=== PATIENT | female | born 1950 | race Caucasian/White ===

== ENCOUNTER 2024-05-29 10:15 | Day surgery (SDC) | payer MEDICARE, OTHER ==
[~2024-05-29] VITALS: Ht 160 cm; Wt 102.2 kg
[2024-05-29] VITALS (17 sets, daily range): BP systolic 107–136; BP diastolic 45–68; PULSE 60–62; RESP 12–22; TEMP 98.2; O2SAT 92–100
[2024-05-29] MEDS ORDERED: OMEG-166 PO (10:59)
[2024-05-29] MEDS ORDERED: CHOL200080 PO (10:59)
[2024-05-29] MEDS ORDERED: POTA-207 PO (10:59)
[2024-05-29] MEDS ORDERED: SACU1TAB PO (10:59)
[2024-05-29] MEDS ORDERED: APIX5TAB3 PO (10:59)
[2024-05-29] MEDS ORDERED: VITA1CAP8 (10:59)
[2024-05-29] MEDS ORDERED: FURO40TA4 PO (10:59)
[2024-05-29] MEDS ORDERED: LACT1CAP65 PO (10:59)
[2024-05-29] MEDS ORDERED: VIT1CAPS9 PO (10:59)
[2024-05-29] MEDS ORDERED: SPIR25TA5 PO (10:59)
[2024-05-29] MEDS: fentaNYL/PF 50MCG/1 ML 2ML syringe IV ONE (12:41)
[2024-05-29] MEDS: normal saline 1000ml 1,000 ML IV SCH (12:41)
[2024-05-29] MEDS: MIDAZolam 1mg/ml 10ml vial IV ONE (12:41)
== END 2024-05-29 14:15 | disposition home or self-care (01) ==
LOC: SSTAY O 10:15
PROVIDERS: ATTEND Student in an Organized Health Care Education/Training Program
DX: I08.1 Rheumatic disorders of both mitral and tricuspid valves (principal); I25.10 Atherosclerotic heart disease of native coronary artery without angina pectoris; I11.0 Hypertensive heart disease with heart failure; I50.9 Heart failure, unspecified; I48.91 Unspecified atrial fibrillation; Z79.01 Long term (current) use of anticoagulants; Z79.899 Other long term (current) drug therapy; Z95.0 Presence of cardiac pacemaker; Z88.1 Allergy status to other antibiotic agents; Z88.7 Allergy status to serum and vaccine
CPT/HCPCS: 93325; 94760; C8925; J2250; J3010; J7030; 93312